=== PATIENT | female | born 1930 | race Caucasian/White ===

== ENCOUNTER → 2017-01-28 | Outpatient (CLI) | payer MEDICARE, OTHER ==
[~2017-01-28] MED LIST: ALAWAY10 ML OPHTH; ASPIR 8181 MG PO; B COMPLETE1 EACH PO; BENADRYL25 MG PO; BENTYL10 MG PO; BIOTIN10000 MC1 PO; CALCIUM 600 +1 EACH PO; CLOBETASOL PROP60 GM TOP; DELTASONE1 MG PO; DITROPAN XL5 MG PO; ELAVIL25 MG PO; FLONASE 50 MCG/16 GM INH; HYDROCHLOROTHIA25 MG PO; KEFLEX500 MG PO; KLOR-CON 1010 MEQ PO; LOPRESSOR25 MG PO; LOPRESSOR50 MG PO; MEGA BIOTIN10000 MCG PO; NORCO 5-325 MG1 TAB PO; OMEPRAZOLE40 MG PO; OSCAL + D500 MG PO; PRESERVISION A1 EAC2 PO; PROBIOTIC1 EAC1 PO; REFRESH CLASSI1 EACH OPHTH; TYLENOL EXTRA500 MG PO; VANCOMYCIN HCL125 MG PO; VITAMIN D1000 UNIT PO; VITAMIN D31000 UNI1 PO
== END | disposition disaster alternative care site (69) ==
LOC: LKCL 13:49
DX: R19.7 Diarrhea, unspecified (principal)

== ENCOUNTER → 2017-03-12 | Outpatient (CLI) | payer MEDICARE, OTHER ==
[2017-03-12 16:41] LABS: BASOPHIL % 0.3 %; EOSINOPHIL # 0.2 K/uL (0.0-0.5); EOSINOPHIL % 2.2 %; HEMOGLOBIN 11.2 g/dL (10.0-15.0); IMMATURE GRANULOCYTE % 0.4 %; LYMPHOCYTE # 0.8 K/uL (0.8-4.0); LYMPHOCYTE % 10.6 %; MCH 29.7 pg (27.0-34.0); MCV 92.8 fl (83.0-98.0); MONOCYTE # 0.5 K/uL (0.0-1.0); MPV 11.5 fl (9.4-12.4); NEUTROPHIL # (ANC) 6.2 K/uL (1.8-7.8); NEUTROPHIL % 80.5 %; NRBC % 0 /100WBC (0-0.00); PLATELET COUNT 217 K/uL (150-450); RBC 3.77 M/uL (3.00-5.00); RDW-CV 15.1 % (11.9-14.6); WBC 7.7 K/uL (4.0-11.0)
[2017-03-12 16:53] LABS: ALBUMIN 3.5 gm/dL (3.5-5.0); CALCIUM 8.4 mg/dL (8.5-10.5); CREATININE 1.1 mg/dL (0.5-1.1); PHOSPHORUS 2.6 mg/dL (2.5-4.9)
== END ==
LOC: LCNC 16:34
PROVIDERS: Internal Medicine Interventional Cardiology
DX: R06.09 Other forms of dyspnea (principal)

== ENCOUNTER 2017-03-13 06:54 | Outpatient (CLI) | payer MEDICARE, OTHER ==
[~2017-03-13] VITALS: Ht 162.6 cm; Wt 67.8 kg
--- NOTE | ~2017-03-13 | CATH ---
Cardiac Diagnostic Report Demographics Patient Name JEAN Thompson Gender Female Date of 1930 Age 86 year(s) Patient Number [id number] Date of Study 03/13/2017 Visit Number [id number] Room Number G6399 [place] [id number] Ht 137.16 cm Wt 67.8 kg Referring Christina Chavez Primary Physician Physician Performing Kendy Collins MD Secondary Physician Physician Diagnostic Kendy Collins MD Assisting Physician Physician Interventional Physician A R Collections Rep Physician Findings and Conclusions Diagnostic Findings and Conclusion Non-obstructive CAD. Diagnostic Recommendations Medical Therapy. Perclosed post care. Procedure Description The patient was brought to the diagnostic cardiac catheterization-EP laboratory in the fasting, non-sedated state. Informed consent was obtained in the written and verbal form after the risks and benefits were explained. The patient had no further questions and agreed to proceed. The planned puncture-incision site(s) were shaved and prepped with ChloraPrep and draped in the usual sterile manner. Conscious sedation, supplemental oxygen, and pain control medications were delivered by a registered nurse under physician guidance. Surface ECG rhythm, blood pressure measurement, and pulse oximetry were monitored throughout the procedure. Arterial access. The access site was infiltrated with lidocaine. The vessel was entered with the Seldinger technique. A sheath was advanced into the vessel and used for catheter placement. Venous access. The access site was infiltrated with 2% lidocaine. The vessel was entered with the Seldinger technique. A sheath was advanced into the vessel and used for catheter placement. Selective left coronary angiography. A catheter was advanced into the left coronary vessel ostium under Fluoroscopic guidance. Contrast was injected by hand. Images were obtained in multiple projections. Selective right coronary angiography. A catheter was advanced into the right coronary vessel ostium under fluoroscopic guidance. Contrast was injected by hand. Images were obtained in multiple projections. Left heart catheterization. A catheter was advanced across the aortic valve to the left ventricle under fluoroscopic guidance. Resting hemodynamics were obtained. Right heart catheterization. A [place]arnest catheter was successfully advanced to the right atrium, right ventricle, pulmonary artery, and pulmonary artery wedge position under fluoroscopic guidance. Resting hemodynamics were obtained. Measurements included pressures, arterial and venous oxygen saturation samples, and cardiac output. The [place] was removed without difficulty. Arterial and Venous hemostasis was achieved. The patient was transferred to a regular nursing floor via cart accompanied by a nurse. The patient left the laboratory in stable condition. Diagnostic Cath Status: Elective Procedure Procedure Type Diagnostic procedure:Angiography:, Right and Left Heart Cath, Coronary Angios Indications: Shortness of breath. The procedure was explained in detail to the patient. Risks, complications and alternative treatments were reviewed. Written consent was obtained. Medications Reviewed with Patient prior to Procedure. Angiographic Findings Dominance: Left Cardiac Arteries and Lesion Findings LMCA: Normal (0% Stenosis).Large caliber vessel. LAD: Normal (0% Stenosis).The proximal to mid LAD is a large caliber vessel. The mid to distal LAD is a medium caliber vessel. The 1st Diag is a small caliber vessel. The 1st Diag appears normal. LCx: Normal (0% Stenosis).LCx is a large caliber vessel. The 1st ob Arlene is a large caliber vessel. The 1st ob Arlene appears normal. The LCX PDA is a medium caliber vessel. The LCX PDA appears normal. RCA: Normal (0% Stenosis).The RCA is a small caliber vessel. Procedure Data Procedure Date Date: 03/13/2017Start: 09:04 AMEnd: 09:55 AM Entry Locations - Retrograde Percutaneous access was performed through the Right Femoral artery (Primary location). A 6 Fr sheath was inserted. Hemostasis was successfully obtained using Perclose ProGlide (High). Closure Comments: zain. - Antegrade Percutaneous access was performed through the Right Femoral vein. A 7 Fr sheath was inserted. Closure Comments: Zain rt removal. Procedure Medications Order and Administration + + + + + !Time !Medication !Dosage !Route ! + + + + + !03/13/2017 08:44 AM !0.9% NaCl !10 ml/hr !I.V. drip ! + + + + + !03/13/2017 08:51 AM !Fentanyl !25 mcg !I.V. ! + + + + + !03/13/2017 09:04 AM !Solumedrol !125 mg !I.V. ! + + + + + !03/13/2017 09:04 AM !Fentanyl !50 mcg !I.V. ! + + + + + !03/13/2017 09:37 AM !Fentanyl !25 mcg !I.V. ! + + + + + Devices Used - A6 Fr. BS Angled Pigtail Diag. Catheterwas used for:LV Pressures. - A6 Fr. BS JL 4 Diag. Catheterwas used for:Left coronary angiography. - A6 Fr. BS JR 4 Diag. Catheterwas used for:Right coronary angiography. Contrast Material - Isovue 57073 ml Fluoroscopy Time: Diagnostic: 4:36 minutes. Total: 4:36 minutes. Fluoroscopy Dose: Diagnostic: 267 mGy. Total: 267 mGy. Estimated Blood Loss: 6 ml. Medical History Performed Procedures and Imaging Results - Stress testing with SPECT MPIwas performed on 02/26/2017. Results were: Negative. Allergies - Iodine:(iodine contast). - Sulfa. - Other:(tramadol, sibatramine, ibandronate sodium). Risk Factors The patient risk factors include:hypertension, last creatinine: 1.1 mg/dl, creatinine clearance: 40.75 ml/min and dyslipidemia. Admission Data Admission Date: 03/13/2017 Admission Time: 06:54 AM Admit Source: Other Insurance Payors: Medicare. Admission Medications + +------+------+ + + + + !Medication !Dosage!Times !Last !Last !Administered !Comments ! ! ! !Per !Delivery !Delivery ! ! ! ! ! !Day !Date !Time ! ! ! + +------+------+ + + + + !Beta ! ! ! ! !Yes ! ! !Mello ! ! ! ! ! ! ! !(any) ! ! ! ! ! ! ! + +------+------+ + + + + !Aspirin ! ! ! ! !Yes ! ! !(any) ! ! ! ! ! ! ! + +------+------+ + + + + Clinical Evaluation Leading to Procedure - There were no CAD presentation symptoms. - There were no anginal symptoms. Anti-anginal medications were prescribed during the past two weeks. The medication is: Beta Blockers. - The patient has been in a state of heart failure within the past two weeks. - The patient's heart failure status was assessed as NYHA Class III, with CHF symptoms of SOUZA. Hemodynamics Condition: Rest O2 Consumption: Estimated: 149.83Heart Rate: 93 bpm Oxygen Saturation +--------+-----+----+ +---+ + !Location!pCO2 !pO2 !% Saturation !Hgb!O2 Content ! +--------+-----+----+ +---+ + !RA ! ! !64.6 ! ! ! +--------+-----+----+ +---+ + !IVC ! ! !72.7 ! ! ! +--------+-----+----+ +---+ + !SVC ! ! !65 ! ! ! +--------+-----+----+ +---+ + !FA ! ! !94.8 ! ! ! +--------+-----+----+ +---+ + !PA ! ! !75.7 ! ! ! +--------+-----+----+ +---+ + Pressures (mmHg) +-----+ + !Site !Pressure ! +-----+ + !RA !6/3 (2) ! +-----+ + !RV !32/-1 ,2 ! +-----+ + !PCW !9/8 (7) ! +-----+ + !PA !19/6 (12) ! +-----+ + !LV !169/-3 ,6 ! +-----+ + !PCW !42/43 (41) ! +-----+ + !LV !170/-2 ,6 ! +-----+ + !LV !172/-2 ,7 ! +-----+ + !PCW !11/ (9) ! +-----+ + !PCW !11/ (9) ! +-----+ + !LV !167/-4 ,12 ! +-----+ + !LV !179/0 ,9 ! +-----+ + !AO !181/76 (121) ! +-----+ + !LV !164/1 ,9 ! +-----+ + !AO !179/ (116) ! +-----+ + !AO !/ (-8) ! +-----+ + Cardiac Output + + +------+ !Time !Cardiac Output (l/min) !Use ! + + +------+ !03/13/2017 09:32 AM !4.43 !False ! + + +------+ !03/13/2017 09:33 AM !3.07 !False ! + + +------+ !03/13/2017 09:33 AM !3.94 !True ! + + +------+ !03/13/2017 09:34 AM !4.35 !True ! + + +------+ !03/13/2017 09:34 AM !4.17 !True ! + + +------+ Cardiac Output +-------+ + + + !Method !CO (l/min) !CI (l/min/m2) !SV (ml) ! +-------+ + + + !Joana !5.15 !3.4 !55.1 ! +-------+ + + + !Thermal![id number] !2.7 !53.25 ! +-------+ + + + Valve Gradients and Areas + +--------+--------+--------+---------+ + + !Valve !Peak !Mean !Area !Index !Flow !Source ! + +--------+--------+--------+---------+ + + !Aortic !0 !0 ! ! !1510.26 !Joana ! + +--------+--------+--------+---------+ + + !Aortic !0 !0 ! ! !1217.99 !Thermal ! + +--------+--------+--------+---------+ + + !Mitral ! !9 !2.88 !1.88 !325.74 !Joana ! + +--------+--------+--------+---------+ + + !Mitral ! !9 !2.32 !1.52 !262.7 !Thermal ! + +--------+--------+--------+---------+ + + Shunts Oxygen Values O2 Capacity 152.32 O2 Consumption 149.83 Flows (l/min) Qs 3.53 Vascular Resistance (dynes x sec x cm-5) + +----+---+----+----+---------+-------+ !CO method !TSVR!SVR!TPVR!PVR !TPVR/TSVR!PVR/SVR! + +----+---+----+----+---------+-------+ !Joana ! ! !2.27!0.59! ! ! + +----+---+----+----+---------+-------+ !Thermal ! ! !2.81!0.73! ! ! + +----+---+----+----+---------+-------+ Discharge Data Discharge Date: 03/13/2017 Hospital Status: Outpatient Signatures dtt: Dennis Larry (cardio) dtd: 03/13/17 0904 Physician Self Edit
[~2017-03-13 06:54] MED LIST changes: -BENADRYL25 MG PO
[2017-03-13] MEDS ORDERED: BENADRYL25 MG PO (07:54)
== END 2017-03-13 14:00 | disposition disaster alternative care site (69) ==
LOC: GPCU 06:54 → GOPP 06:54 → GPOC 07:00 → GOPP 14:00 → GPOC 03-14 13:00
DX: R06.09 Other forms of dyspnea (principal); R00.2 Palpitations; I10 Essential (primary) hypertension; I27.2 Other secondary pulmonary hypertension; I42.0 Dilated cardiomyopathy; K21.0 Gastro-esophageal reflux disease with esophagitis; E66.3 Overweight; I50.20 Unspecified systolic (congestive) heart failure; E78.5 Hyperlipidemia, unspecified; I44.7 Left bundle-branch block, unspecified; I25.10 Atherosclerotic heart disease of native coronary artery without angina pectoris; E87.6 Hypokalemia; M79.7 Fibromyalgia; M35.3 Polymyalgia rheumatica; M19.90 Unspecified osteoarthritis, unspecified site; G47.00 Insomnia, unspecified; A04.7 Enterocolitis due to Clostridium difficile; Z79.2 Long term (current) use of antibiotics; Z79.82 Long term (current) use of aspirin; Z79.52 Long term (current) use of systemic steroids; Z79.899 Other long term (current) drug therapy; Z90.49 Acquired absence of other specified parts of digestive tract; Z98.1 Arthrodesis status
CPT/HCPCS: C1760; J2250; J2930; J3010; J7030; J7060

== ENCOUNTER → 2017-03-15 | Outpatient (CLI) | payer MEDICARE, OTHER ==
[~2017-03-15] MED LIST changes: +BENADRYL25 MG PO
--- NOTE | ~2017-03-15 | PUL ---
PATIENT'S NAME: LINDSEY PENA [facility] AGE: 86 Y [address] ROOM: [place] [address] LOCATION: [facility] ADMIT DATE: 03/15/2017 Pulmonary DISCHARGE DATE: FAMILY PHYSICIAN: TEGAN BRADLEY ATTENDING PHYSICIAN: Dennis Larry NAME OF PROCEDURE: Pulmonary Function Test DATE OF PROCEDURE: March 15, 2017 TECH: MELIDA Pastrana REASON FOR EXAM: Dyspnea on exertion RESULTS: 1. FVC was 1.61 liters which is 66% of predicted and low, FEV1 was 1.12 liters which is 62% of predicted and low, and FEV1/FVC was 70% and normal for patient's demographics. After bronchodilator administration FVC increased to 2.08 liters which is a 29% increase and FEV1 increased to 1.33 liters which is an 18% increase. FEV1/FVC was 64%. 2. DLCO was 10.5 with an adjusted DLCO of 11.5 which is 65% of predicted and normal. 3. Total lung capacity was 4.67 liters which is 99% of predicted and normal, and residual volume was 2.97 liters which is 144% of predicted and high. PHYSICIAN INTERPRETATION: The patient has no airflow limitation but has a significant bronchodilator response. Her diffusion capacity is normal. There is evidence of air trapping on the lung volumes. MD HELEN BACH/shea /[id number] dtt: 03/17/17 0939 , DESMOND DIAMOND dtd: 03/16/17 1126
== END | disposition disaster alternative care site (69) ==
LOC: GRTH 10:41
DX: R06.09 Other forms of dyspnea (principal)

== ENCOUNTER → 2017-05-21 | Outpatient (CLI) | payer MEDICARE, OTHER | END | disposition disaster alternative care site (69) | LOC: GBCOE 10:17 | DX: Z12.31 Encounter for screening mammogram for malignant neoplasm of breast (principal); Z91.89 Other specified personal risk factors, not elsewhere classified | CPT/HCPCS: G0202 ==